=== PATIENT | female | born 1995 | race Caucasian/White ===

== ENCOUNTER 2019-02-21 21:49 | Emergency (ER) | payer SELFPAY, OTHER | END 2019-02-22 03:00 | disposition left against medical advice (07) | LOC: FTE 21:49 | DX: Z53.21 Procedure and treatment not carried out due to patient leaving prior to being seen by health care provider (principal) ==

== ENCOUNTER 2019-02-22 05:00 | Emergency (ER) | payer OTHER ==
[2019-02-22] MEDS: IBUPROFEN 600 MG TAB PO (05:28)
[2019-02-22] MEDS: AMOXICILLIN/CLAV 875 MG TAB PO (05:34)
== END 2019-02-22 05:48 | disposition home or self-care (01) ==
LOC: FTE 05:48
DX: H66.93 Otitis media, unspecified, bilateral (principal)
CPT/HCPCS: 99283; Z7502